=== PATIENT | female | born 1970 | race Caucasian/White ===

== ENCOUNTER 2017-04-24 13:07 | Emergency (ER) | payer BC ==
--- NOTE | 2017-04-24 13:46 | CPEKG ---
Heart Rate: 71 RR Interval: 845 P-R Interval: 112 QRSD Interval: 92 QT Interval: 396 QTC Interval: 431 P Temple: 72 QRS Temple: 63 T Wave Temple: 27 EKG Severity - OTHERWISE NORMAL ECG - EKG Impression: SINUS RHYTHM EKG Impression: MINIMAL ST DEPRESSION, INFERIOR LEADS Electronically Signed By: Blaire Baptiste 24-Apr-2017 20:01:11
--- NOTE | 2017-04-24 14:08 | EDPHY ---
H & P Time Seen by Provider: 04/24/17 13:31 HPI/ROS: Chief complaint. Chest pain HPI. I did not see this patient in the emergency department; she was seen by Dr. Baptiste. We both signed up for the patient at the same time. Smoking Status: Never smoked Constitutional: Initial Vital Signs Temperature (C) 36.7 C 04/24/17 13:11 Heart Rate 85 04/24/17 13:11 Respiratory Rate 16 04/24/17 13:11 Blood Pressure 135/81 H 04/24/17 13:11 O2 Sat (%) 97 04/24/17 13:11 O2 Delivery Mode Room Air Allergies/Adverse Reactions: azithromycin [From Zithromax] Allergy (Intermediate, Verified 12/20/14 08:47) DIZZINESS/RASH Sulfa (Sulfonamide Antibiotics) Allergy (Verified 12/20/14 08:47) Home Medications: Medication Instructions Recorded Albuterol 04/24/17 Flovent Hfa 04/24/17 Medical Decision Making - Diagnostics Imaging Results: Imaging Impressions Chest X-Ray 04/24/17 14:17 Impression: No acute pulmonary disease. - Data Points Laboratory Results: Laboratory Results 04/24/17 14:25 04/24/17 14:25 04/24/17 04/24/17 04/24/17 14:25 14:25 14:25 WBC RBC Hgb Hct MCV MCH MCHC RDW Plt Count MPV Neut % (Auto) Lymph % (Auto) [place] % (Auto) Eos % (Auto) Baso % (Auto) Nucleat RBC Rel Count Absolute Neuts (auto) Absolute Lymphs (auto) Absolute Monos (auto) Absolute Eos (auto) Absolute Basos (auto) Absolute Nucleated RBC Immature Gran % Immature Gran # D-Dimer < 0.27 ug/mLFEU ug/mLFEU (0.00-0.50) Sodium 138 mEq/L mEq/L (134-144) Potassium 3.7 mEq/L mEq/L (3.5-5.2) Chloride 102 mEq/L mEq/L (97-110) Carbon Dioxide 24 mEq/l mEq/l (22-31) Anion Gap 12 mEq/L mEq/L (8-16) BUN 11 mg/dL mg/dL (7-23) Creatinine 0.7 mg/dL mg/dL (0.6-1.0) Estimated GFR > 60 Glucose 84 mg/dL mg/dL (70-100) Calcium 9.1 mg/dL mg/dL (8.5-10.4) Total Bilirubin 0.4 mg/dL mg/dL (0.1-1.4) Conjugated Bilirubin 0.2 mg/dL mg/dL (0.0-0.5) Unconjugated Bilirubin 0.2 mg/dL mg/dL (0.0-1.1) AST 26 IU/L IU/L (14-46) ALT 30 IU/L IU/L (9-52) Alkaline Phosphatase 35 IU/L L IU/L (38-126) Troponin I < 0.012 ng/mL ng/mL (0.000-0.034) Total Protein 6.7 g/dL g/dL (6.3-8.2) Albumin 4.2 g/dL g/dL (3.5-5.0) Lipase 273 IU/L IU/L (23-300) Beta HCG, Qual NEGATIVE 04/24/17 14:25 WBC 9.02 10^3/uL 10^3/uL (3.80-9.50) RBC 4.59 10^6/uL 10^6/uL (4.18-5.33) Hgb 14.2 g/dL g/dL (12.6-16.3) Hct 42.3 % % (38.0-47.0) MCV 92.2 fL fL (81.5-99.8) MCH 30.9 pg pg (27.9-34.1) MCHC 33.6 g/dL g/dL (32.4-36.7) RDW 12.8 % % (11.5-15.2) Plt Count 270 10^3/uL 10^3/uL (150-400) MPV 9.7 fL fL (8.7-11.7) Neut % (Auto) 62.0 % % (39.3-74.2) Lymph % (Auto) 25.3 % % (15.0-45.0) [place] % (Auto) 8.8 % % (4.5-13.0) Eos % (Auto) 3.1 % % (0.6-7.6) Baso % (Auto) 0.6 % % (0.3-1.7) Nucleat RBC Rel Count 0.0 % % (0.0-0.2) Absolute Neuts (auto) 5.60 10^3/uL 10^3/uL (1.70-6.50) Absolute Lymphs (auto) 2.28 10^3/uL 10^3/uL (1.00-3.00) Absolute Monos (auto) 0.79 10^3/uL 10^3/uL (0.30-0.80) Absolute Eos (auto) 0.28 10^3/uL 10^3/uL (0.03-0.40) Absolute Basos (auto) 0.05 10^3/uL 10^3/uL (0.02-0.10) Absolute Nucleated RBC 0.00 10^3/uL 10^3/uL (0-0.01) Immature Gran % 0.2 % % (0.0-1.1) Immature Gran # 0.02 10^3/uL 10^3/uL (0.00-0.10) D-Dimer Sodium Potassium Chloride Carbon Dioxide Anion Gap BUN Creatinine Estimated GFR Glucose Calcium Total Bilirubin Conjugated Bilirubin Unconjugated Bilirubin AST ALT Alkaline Phosphatase Troponin I Total Protein Albumin Lipase Beta HCG, Qual Medications Given: Discontinued Medications Al Hydroxide/Mg Hydroxide (Maalox Susp) 30 ml PO ONCE ONE Stop: 04/24/17 14:18 Last Admin: 04/24/17 14:36 Dose: Not Given Aspirin (Aspirin) 324 mg PO EDNOW ONE Stop: 04/24/17 14:18 Last Admin: 04/24/17 14:36 Dose: 324 mg Lidocaine (Lidocaine 2% Viscous) 15 ml PO ONCE ONE Stop: 04/24/17 14:18 Last Admin: 04/24/17 14:36 Dose: Not Given Departure - Departure Disposition: Home, Routine, Self-Care Clinical Impression: Chest pain Condition: Good Instructions: Chest Pain (ED) Additional Instructions: Your laboratory studies were normal. Your chest x-ray was unremarkable. You need close follow-up with clinical law professor. Return with increasing chest pain, shortness of breath, fever or any other concerns. Referrals: Get Denise MD [Medical Doctor] - 2-3 days without fail
[2017-04-24] MEDS ORDERED: ASPIRIN 81 MG CHEWABLE TAB PO ONE (14:17)
[2017-04-24] MEDS ORDERED: MAG HYDROX/AL HYDROX/SIMETH 30 ML UDCUP PO ONE (14:17)
[2017-04-24] MEDS ORDERED: LIDOCAINE 2% VISCOUS 15 ML UDCUP PO ONE (14:17)
--- NOTE | 2017-04-24 14:21 | EDPHY ---
H & P Time Seen by Provider: 04/24/17 13:31 HPI/ROS: CHIEF COMPLAINT: Chest pain HISTORY OF PRESENT ILLNESS: The patient is a 46-year-old female who presents emergency department chest pain. She states she woke last night with left- sided anterior chest pain. It is worse with movement. She got up to take her child to the bathroom and stated she could barely move due to the pain. She describes a pleuritic pain. It was worse when she laid back. She drove herself to the emergency department last night but decided not to be seen. She attributed the pain to upper GI source. Her pain has been intermittent. It is not as severe at this time. She has had no leg pain or swelling. No recent travel. No shortness of breath or cough. No fevers or chills. Patient has a history of aneurysm in the family. The patient went swimming for exercise this morning with no significant discomfort or shortness of breath. REVIEW OF SYSTEMS: My complete review of systems is negative except as mentioned in the HPI. Past Medical/Surgical History: Includes asthma Past surgical history: Denies Social history: The patient does not smoke. Family history: The patient's mother had an aortic aneurysm. Patient's brother also had an aortic aneurysm. Smoking Status: Never smoked Physical Exam: Vitals noted GENERAL: Well-appearing, in no acute distress, alert. HEENT: Eyes normal to inspection, normal pharynx, no signs of dehydration. NECK: No thyromegaly, no lymphadenopathy, supple. RESPIRATORY: Clear to auscultation bilaterally, no rales, rhonchi or wheezing. CVS: Regular rate and rhythm, no rubs, murmurs, or gallops. Chest wall: No rash. No tenderness palpation. ABDOMEN: Soft, nontender, nondistended, no organomegaly. BACK: Normal to inspection, no CVA tenderness. SKIN: Normal color, no rash, warm, dry. No pallor. EXTREMITIES: No pedal edema, no calf tenderness, no Homans sign or cords, no joint swelling. NEURO/PSYCH: Alert and oriented x3, normal mood and affect, normal motor sensory exam. Constitutional: Initial Vital Signs Temperature (C) 36.7 C 04/24/17 13:11 Heart Rate 85 04/24/17 13:11 Respiratory Rate 16 04/24/17 13:11 Blood Pressure 135/81 H 04/24/17 13:11 O2 Sat (%) 97 04/24/17 13:11 O2 Delivery Mode Room Air Allergies/Adverse Reactions: azithromycin [From Zithromax] Allergy (Intermediate, Verified 12/20/14 08:47) DIZZINESS/RASH Sulfa (Sulfonamide Antibiotics) Allergy (Verified 12/20/14 08:47) Home Medications: Medication Instructions Recorded Albuterol 04/24/17 Flovent Hfa 04/24/17 Medical Decision Making - Diagnostics EKG Interpretation: Sinus rhythm at 71. Normal axis. Normal intervals. No significant ST or T- wave abnormality. Imaging Results: Imaging Impressions Chest X-Ray 04/24/17 14:17 Impression: No acute pulmonary disease. ED Course/Re-evaluation: In the emergency department I discussed possible etiologies with the patient. I answered all her questions. An IV was placed. Laboratory studies, chest x- ray and EKG were ordered. The patient was given aspirin 324 mg orally. She is given a GI cocktail. The patient refused a GI cocktail. Patient's laboratory studies were unremarkable. Troponin and D-dimer were negative. Chest x-ray: Please refer the dictated report. No acute disease I discussed the results with the patient. On recheck the patient was doing well. She had no chest pain. I discussed all results. I gave her warnings prior to leaving. She will follow up with Cardiology. Differential Diagnosis: My differential includes but is not limited to ACS, acute SC, pericarditis, myocarditis, dissection, aneurysm, PE, GERD - Data Points Laboratory Results: Laboratory Results 04/24/17 14:25 04/24/17 14:25 04/24/17 04/24/17 04/24/17 14:25 14:25 14:25 WBC RBC Hgb Hct MCV MCH MCHC RDW Plt Count MPV Neut % (Auto) Lymph % (Auto) [place] % (Auto) Eos % (Auto) Baso % (Auto) Nucleat RBC Rel Count Absolute Neuts (auto) Absolute Lymphs (auto) Absolute Monos (auto) Absolute Eos (auto) Absolute Basos (auto) Absolute Nucleated RBC Immature Gran % Immature Gran # D-Dimer < 0.27 ug/mLFEU ug/mLFEU (0.00-0.50) Sodium 138 mEq/L mEq/L (134-144) Potassium 3.7 mEq/L mEq/L (3.5-5.2) Chloride 102 mEq/L mEq/L (97-110) Carbon Dioxide 24 mEq/l mEq/l (22-31) Anion Gap 12 mEq/L mEq/L (8-16) BUN 11 mg/dL mg/dL (7-23) Creatinine 0.7 mg/dL mg/dL (0.6-1.0) Estimated GFR > 60 Glucose 84 mg/dL mg/dL (70-100) Calcium 9.1 mg/dL mg/dL (8.5-10.4) Total Bilirubin 0.4 mg/dL mg/dL (0.1-1.4) Conjugated Bilirubin 0.2 mg/dL mg/dL (0.0-0.5) Unconjugated Bilirubin 0.2 mg/dL mg/dL (0.0-1.1) AST 26 IU/L IU/L (14-46) ALT 30 IU/L IU/L (9-52) Alkaline Phosphatase 35 IU/L L IU/L (38-126) Troponin I < 0.012 ng/mL ng/mL (0.000-0.034) Total Protein 6.7 g/dL g/dL (6.3-8.2) Albumin 4.2 g/dL g/dL (3.5-5.0) Lipase 273 IU/L IU/L (23-300) Beta HCG, Qual NEGATIVE 04/24/17 14:25 WBC 9.02 10^3/uL 10^3/uL (3.80-9.50) RBC 4.59 10^6/uL 10^6/uL (4.18-5.33) Hgb 14.2 g/dL g/dL (12.6-16.3) Hct 42.3 % % (38.0-47.0) MCV 92.2 fL fL (81.5-99.8) MCH 30.9 pg pg (27.9-34.1) MCHC 33.6 g/dL g/dL (32.4-36.7) RDW 12.8 % % (11.5-15.2) Plt Count 270 10^3/uL 10^3/uL (150-400) MPV 9.7 fL fL (8.7-11.7) Neut % (Auto) 62.0 % % (39.3-74.2) Lymph % (Auto) 25.3 % % (15.0-45.0) [place] % (Auto) 8.8 % % (4.5-13.0) Eos % (Auto) 3.1 % % (0.6-7.6) Baso % (Auto) 0.6 % % (0.3-1.7) Nucleat RBC Rel Count 0.0 % % (0.0-0.2) Absolute Neuts (auto) 5.60 10^3/uL 10^3/uL (1.70-6.50) Absolute Lymphs (auto) 2.28 10^3/uL 10^3/uL (1.00-3.00) Absolute Monos (auto) 0.79 10^3/uL 10^3/uL (0.30-0.80) Absolute Eos (auto) 0.28 10^3/uL 10^3/uL (0.03-0.40) Absolute Basos (auto) 0.05 10^3/uL 10^3/uL (0.02-0.10) Absolute Nucleated RBC 0.00 10^3/uL 10^3/uL (0-0.01) Immature Gran % 0.2 % % (0.0-1.1) Immature Gran # 0.02 10^3/uL 10^3/uL (0.00-0.10) D-Dimer Sodium Potassium Chloride Carbon Dioxide Anion Gap BUN Creatinine Estimated GFR Glucose Calcium Total Bilirubin Conjugated Bilirubin Unconjugated Bilirubin AST ALT Alkaline Phosphatase Troponin I Total Protein Albumin Lipase Beta HCG, Qual Medications Given: Discontinued Medications Al Hydroxide/Mg Hydroxide (Maalox Susp) 30 ml PO ONCE ONE Stop: 04/24/17 14:18 Last Admin: 04/24/17 14:36 Dose: Not Given Aspirin (Aspirin) 324 mg PO EDNOW ONE Stop: 04/24/17 14:18 Last Admin: 04/24/17 14:36 Dose: 324 mg Lidocaine (Lidocaine 2% Viscous) 15 ml PO ONCE ONE Stop: 04/24/17 14:18 Last Admin: 04/24/17 14:36 Dose: Not Given Departure - Departure Disposition: Home, Routine, Self-Care Clinical Impression: Chest pain Qualifiers: Chest pain type: other chest pain Qualified Code(s): R07.89 - Other chest pain Condition: Good Instructions: Chest Pain (ED) Additional Instructions: Your laboratory studies were normal. Your chest x-ray was unremarkable. You need close follow-up with assemblies and installations inspector. Return with increasing chest pain, shortness of breath, fever or any other concerns. Referrals: Get Denise MD [Medical Doctor] - 2-3 days without fail
[2017-04-24 14:37] VITALS: RESP 18; O2SAT 96
[2017-04-24 14:38] LABS: % IMMATURE GRANULYOCYTES 0.2 % (0.0-1.1); ABSOLUTE IMMATURE GRANULOCYTES 0.02 10^3/uL (0.00-0.10); ADD DIFF? NO; ADD MORPH? NO; ADD SCAN? NO; ATYPICAL LYMPHOCYTE FLAG 10 (0-99); FRAGMENT RBC FLAG 0 (0-99); HEMATOCRIT 42.3 % (38.0-47.0); HEMOGLOBIN 14.2 g/dL (12.6-16.3); LEFT SHIFT FLG 0 (0-99); LIPEMIA HEMOLYSIS FLAG 80 (0-99); MEAN CELL HEMOGLOBIN 30.9 pg (27.9-34.1); MEAN CELL HEMOGLOBIN CONCENTR. 33.6 g/dL (32.4-36.7); MEAN CELL VOLUME 92.2 fL (81.5-99.8); MEAN PLATELET VOLUME 9.7 fL (8.7-11.7); PLATELET CLUMPS FLAG 0 (0-99); PLATELET COUNT 270 10^3/uL (150-400); RED BLOOD CELL COUNT 4.59 10^6/uL (4.18-5.33); RED CELL DISTRIBUTION WIDTH 12.8 % (11.5-15.2)
[2017-04-24 14:56] LABS: ALANINE AMINOTRANSFERASE 30 IU/L (9-52); ALBUMIN 4.2 g/dL (3.5-5.0); ALKALINE PHOSPHATASE 35 IU/L (38-126); ANION GAP 12 mEq/L (8-16); ASPARTATE AMINOTRANSFERASE 26 IU/L (14-46); BILIRUBIN,TOTAL 0.4 mg/dL (0.1-1.4); BILIRUBIN-CONJUGATED 0.2 mg/dL (0.0-0.5); BILIRUBIN-UNCONJUGATED 0.2 mg/dL (0.0-1.1); CALCIUM 9.1 mg/dL (8.5-10.4); CARBON DIOXIDE 24 mEq/l (22-31); CHLORIDE 102 mEq/L (97-110); CREATININE 0.7 mg/dL (0.6-1.0); GLOMERULAR FILTRATION RATE > 60; GLUCOSE 84 mg/dL (70-100); POTASSIUM 3.7 mEq/L (3.5-5.2); SODIUM 138 mEq/L (134-144); TOTAL PROTEIN 6.7 g/dL (6.3-8.2)
[2017-04-24 15:07] LABS: TROPONIN I < 0.012 ng/mL (0.000-0.034)
[2017-04-24 15:22] VITALS: BP 116/78; PULSE 82; TEMP 98.2
== END 2017-04-24 15:22 | disposition home or self-care (01) ==
DX: R07.89 Other chest pain (principal); J45.909 Unspecified asthma, uncomplicated

== ENCOUNTER → 2018-12-08 | Outpatient (CLI) | payer OTHER | LOC: FIMAGING 12:54 | PROVIDERS: ATTEND Family Medicine | DX: N64.4 Mastodynia (principal) ==